=== PATIENT | female | born 1980 | race Caucasian/White ===

== ENCOUNTER 2019-08-25 10:14 | Observation (INO) | payer OTHER ==
[2019-08-25 15:24] LABS: Hematocrit 38.8 % (35-47); Hemoglobin 12.5 gm/dl (12.0-16.0); Mean Cell Volume 87.2 fl (78-100); Mean Corpuscular Hemoglobin 28.1 pg (26-32); Mean Corpuscular Hgb Concent. 32.2 g/dl (32-36); Mean Platelet Volume 11.5 fl (6-9.5); Platelet Count 246 K/mm3 (150-450); Red Blood Count 4.45 M/mm3 (4.1-5.4); Red Cell Distribution Width 13.7 % (11.5-14.0); White Blood Count 5.7 K/mm3 (4.0-10.5)
[2019-08-25 15:30] LABS: ALBUMIN 3.9 g/dL (3.5-5.0); ALKALINE PHOSPHATASE 58 U/L (38-126); ANION GAP 8.8 MEQ/L (5-15); BLOOD UREA NITROGEN 22 mg/dL (7-17); CHLORIDE 106 mmol/L (98-107); Calcium 9.2 mg/dL (8.4-10.2); Carbon Dioxide 29 mmol/L (22-30); Creatinine 1 0.73 mg/dL (0.52-1.04); Glucose 81 mg/dL (74-106); MAGNESIUM 1.8 mg/dL (1.6-2.3); Potassium 4.2 mmol/L (3.5-5.1); SGOT/AST 29 U/L (14-36); SGPT/ALT 21 U/L (0-35); SODIUM 140 mmol/L (137-145)
[2019-08-25] MEDS: Sodium Chloride 0.9% 1000 ML 1,000 ML IV SCH ×3 (15:34→22:48)
[2019-08-26] MEDS: Sodium Chloride 0.9% 1000 ML 1,000 ML IV SCH ×3 (05:20→19:38)
--- NOTE | 2019-08-26 08:30 | PCM.SSS ---
History of Present Illness - Chief Complaint Chief Complaint: severe dizziness and syncopal episodes for last 1 day History of Present Illness: is a 38 year old female.With significant past medical history of recurrent orthostatic hypotension and syncopal episode, which workup has not reveal any significant findings, but more suggestive of autonomic hypotension. She was in her usual state of health and since yesterday night she passed out couple times and now she is feeling ready weak and dizzy. She came to my office , where she was also having a near syncopal episode, so she was admitted for further evaluation and the saline infusion. - Review of Systems Constitutional: No Fever, No Chills Eyes: No Symptoms Ears, Nose, & Throat: No Symptoms Respiratory: No Cough, No Short Of Breath Cardiac: Syncope, No Chest Pain, No Edema Abdominal/Gastrointestinal: No Abdominal Pain, No Nausea, No Vomiting, No Diarrhea Genitourinary Symptoms: No Dysuria Musculoskeletal: No Back Pain, No Neck Pain Skin: No Rash Neurological: Dizziness, No Focal Weakness, No Sensory Changes Psychological: No Symptoms Endocrine: No Symptoms Hematologic/Lymphatic: No Symptoms Immunological/Allergic: No Symptoms Medications & Allergies Home Medications: Home Medication List Lisinopril/Hydrochlorothiazide [Lisinopril-Hctz 20-12.5 mg Tab] 1 tab PO DAILY 08/20/16 [History Confirmed 08/25/19] Allergies/Adverse Reactions: Allergies Allergy/AdvReac Type Severity Reaction Status Date / Time No Known Drug Allergies Allergy Verified 05/10/17 15:59 - Past Medical History Past Medical History: Yes Neurological History: Migraines ENT History: No Pertinent History Cardiac History: Hypertension Respiratory History: No Pertinent History Endocrine Medical History: No Pertinent History Musculoskelatal History: No Pertinent History GI Medical History: No Pertinent History History: No Pertinent History Pyscho-Social History: No Pertinent History Reproductive Disorders: No Pertinent History Comment: Postural Orthostatic Tachycardial Syndrome - Female History Are you now?: No (tubal) - Past Surgical History Past Surgical History: Yes Neuro Surgical History: No Pertinent History Cardiac History: No Pertinent History Respiratory Surgery: No Pertinent History GI Surgical History: Appendectomy Genitourinary Surgical Hx: No Pertinent History Musculskeletal Surgical Hx: No Pertinent History Female Surgical History: Section, Tubal Ligation Other Surgical History: spinal fusion L5-S1 - Social History Smoking Status: Never smoker Exposure to second hand smoke: No Alcohol: None Drug Use: none - Physical Exam Vital Signs: Vital Signs - 24 hr Temp Pulse Resp BP Pulse Ox 08/26/19 07:19 97.8 F 72 20 120/67 99 08/26/19 04:14 98.1 F 72 16 109/63 97 08/25/19 23:39 98.1 F 72 18 104/58 97 08/25/19 20:00 98.0 F 87 17 117/58 96 08/25/19 16:00 98.1 F 65 20 114/60 99 08/25/19 12:30 98.1 F 66 18 142/72 99 08/25/19 12:00 98.1 F 66 18 142/72 99 General Appearance: no apparent distress, alert Neurologic Exam: alert, oriented x 3, cooperative, normal mood/affect, nml cerebellar function, nml station & gait, sensation nml, No motor deficits Eye Exam: PERRL/EOMI, eyes nml inspection Ears, Nose, Throat Exam: normal ENT inspection, TMs normal, pharynx normal, moist mucous membranes Neck Exam: normal inspection, non-tender, supple, full range of motion Respiratory Exam: normal breath sounds, lungs clear, No respiratory distress Cardiovascular Exam: regular rate/rhythm, normal heart sounds, normal peripheral pulses Gastrointestinal/Abdomen Exam: soft, normal bowel sounds, No tenderness, No mass Back Exam: normal inspection, normal range of motion, No CVA tenderness, No vertebral tenderness Extremity Exam: normal inspection, normal range of motion, pelvis stable Skin Exam: normal color, warm, dry, No rash Lymphatic Exam: No adenopathy Results - Labs Lab/Micro Results: Lab Results-Last 24 Hours 08/25/19 08/25/19 Range/Units 14:45 14:45 WBC 5.7 (4.0-10.5) K/mm3 RBC 4.45 (4.1-5.4) M/mm3 Hgb 12.5 (12.0-16.0) gm/dl Hct 38.8 (35-47) % MCV 87.2 (78-100) fl MCH 28.1 (26-32) pg MCHC 32.2 (32-36) g/dl RDW 13.7 (11.5-14.0) % Plt Count 246 (150-450) K/mm3 MPV 11.5 H (6-9.5) fl Sodium 140 (137-145) mmol/L Potassium 4.2 (3.5-5.1) mmol/L Chloride 106 (98-107) mmol/L Carbon Dioxide 29 (22-30) mmol/L Anion Gap 8.8 (5-15) MEQ/L BUN 22 H (7-17) mg/dL Creatinine 0.73 (0.52-1.04) mg/dL Estimated GFR > 60.0 ML/MIN Glucose 81 (74-106) mg/dL Calcium 9.2 (8.4-10.2) mg/dL Magnesium 1.8 (1.6-2.3) mg/dL Total Bilirubin 0.50 (0.2-1.3) mg/dL AST 29 (14-36) U/L ALT 21 (0-35) U/L Alkaline Phosphatase 58 (38-126) U/L Serum Total Protein 7.0 (6.3-8.2) g/dL Albumin 3.9 (3.5-5.0) g/dL - Radiology Impressions Radiology Exams & Impressions: RAD/CHEST 2 VIEWS (PA AND LAT) Indication: Left rib pain and migraines. Comparison: February 06, 2013 PA/L chest again demonstrates normal heart, lungs, and bony thorax with a few scattered calcified granulomas. - Other Procedures and Tests Respiratory Therapy 08/26/19 08:02 EKG OM.NOW Assessment/Plan (1) Autonomic postural hypotension Current Visit: Yes Status: Acute Assessment & Plan: Chief Complaint Diagnosis Orthostatic hypotension Allergies Allergy/AdvReac Type Severity Reaction Status Date / Time No Known Drug Allergies Allergy Verified 05/10/17 15:59 Vital Signs (Last 24 hours) Temp Pulse Resp BP Pulse Ox 08/26/19 07:19 97.8 F 72 20 120/67 99 08/26/19 04:14 98.1 F 72 16 109/63 97 08/25/19 23:39 98.1 F 72 18 104/58 97 08/25/19 20:00 98.0 F 87 17 117/58 96 08/25/19 16:00 98.1 F 65 20 114/60 99 08/25/19 12:30 98.1 F 66 18 142/72 99 08/25/19 12:00 98.1 F 66 18 142/72 99 Current Medications Generic Name Dose Route Start Last Admin Trade Name Vinicioq PRN Reason Stop Dose Admin Hydrochlorothiazide 12.5 mg 08/26/19 10:00 Hydrodiuril 25 Mg PO 09/25/19 09:59 DAILY ROCÍO Sodium Chloride 1,000 mls @ 150 mls/hr 08/25/19 21:00 08/26/19 05:20 Sodium Chloride 0.9% 1000 Ml IV 09/24/19 20:59 150 mls/hr .Q6H40M ROCÍO Administration Lisinopril 20 mg 08/26/19 10:00 Zestril 20 Mg PO 09/25/19 09:59 DAILY ROCÍO Discontinued Medications Generic Name Dose Route Start Last Admin Trade Name Vinicioq PRN Reason Stop Dose Admin Sodium Chloride 1,000 mls @ 999 mls/hr 08/25/19 15:30 08/25/19 17:06 Sodium Chloride 0.9% 1000 Ml IV 08/25/19 17:30 999 mls/hr .Q1H1M ROCÍO Administration Intake & Output (Last 24 hours) 08/23/19 08/24/19 08/25/19 08/26/19 11:59 11:59 11:59 11:59 Intake Total 4145 Output Total 600 Balance 3545 Weight 113.1 kg Laboratory Results (Last 24 hours) 08/25/19 08/25/19 14:45 14:45 WBC 5.7 RBC 4.45 Hgb 12.5 Hct 38.8 MCV 87.2 MCH 28.1 MCHC 32.2 RDW 13.7 Plt Count 246 MPV 11.5 H Sodium 140 Potassium 4.2 Chloride 106 Carbon Dioxide 29 Anion Gap 8.8 BUN 22 H Creatinine 0.73 Estimated GFR > 60.0 Glucose 81 Calcium 9.2 Magnesium 1.8 Total Bilirubin 0.50 AST 29 ALT 21 Alkaline Phosphatase 58 Serum Total Protein 7.0 Albumin 3.9 Orders (Last 24 hours) Category Date Time Status Telemetry q6h Care 08/26/19 00:39 Active Regular Diet Diet 08/25/19 Lunch Active CBC Urgent Lab 08/25/19 14:45 Completed CMP Urgent Lab 08/25/19 14:45 Completed MAG [MAGNESIUM] Urgent Lab 08/25/19 14:45 Completed Hydrochlorothiazide 25 mg [hydroDIURIL 25 MG] Med 08/26/19 10:00 Active 12.5 mg PO DAILY Lisinopril 20 mg [Zestril 20 MG] Med 08/26/19 10:00 Active 20 mg PO DAILY NaCl 0.9% 1000 ml [Sodium Chloride 0.9% 1000 ML] 1,000 Med 08/25/19 21:00 Active ml IV 150 mls/hr NaCl 0.9% 1000 ml [Sodium Chloride 0.9% 1000 ML] 1,000 Med 08/25/19 15:30 Discontinued ml IV 999 mls/hr EKG OM.NOW RT 08/26/19 08:02 Active Patient Care Notes (Last 24 hours) 08/25/19 21:05 (created 08/26/19 01:09) Nursing Note by [facility] Pt c/o heavy pain in her chest, 5/10 and headache. States feels like a weight is on her chest. BP 122/70, HR 73, O2 sat 99% on RA. Episode was subsiding by the time her vitals were taken. Upon reassessment, pt states that the pain is gone. She states that this is the same feeling she always gets with these episodes. Initialized on 08/26/19 01:09 - END OF NOTE Code(s): I95.1 - ORTHOSTATIC HYPOTENSION (2) Syncope due to orthostatic hypotension Current Visit: Yes Status: Acute Code(s): I95.1 - ORTHOSTATIC HYPOTENSION Hospital Summary - Hospital Course Hospital Course: Last Vital Signs Temp 97.8 F 08/26/19 07:19 Pulse 72 08/26/19 07:19 Resp 20 08/26/19 07:19 BP 120/67 08/26/19 07:19 Pulse Ox 99 08/26/19 07:19 Allergies No Known Drug Allergies Allergy (Verified 05/10/17 15:59) Active Medications Hydrochlorothiazide (Hydrodiuril 25 Mg) 12.5 mg PO DAILY ROCÍO Stop: 09/25/19 09:59 Sodium Chloride (Sodium Chloride 0.9% 1000 Ml) 1,000 mls @ 150 mls/hr IV .Q6H40M ROCÍO Stop: 09/24/19 20:59 Last Admin: 08/26/19 05:20 Dose: 150 mls/hr Lisinopril (Zestril 20 Mg) 20 mg PO DAILY ROCOÍ Stop: 09/25/19 09:59 Intake & Output 08/25/19 08/26/19 11:59 11:59 Intake Total 4145 Output Total 600 Balance 3545 Weight 113.1 kg Orders 08/25/19 21:00 NaCl 0.9% 1000 ml [Sodium Chloride 0.9% 1000 ML] 1,000 ml IV 150 mls/hr 08/25/19 Lunch Regular Diet 08/26/19 08:02 EKG OM.NOW 08/26/19 10:00 Hydrochlorothiazide 25 mg [hydroDIURIL 25 MG] 12.5 mg PO DAILY Lisinopril 20 mg [Zestril 20 MG] 20 mg PO DAILY Lab Tests 08/25/19 08/25/19 14:45 14:45 WBC 5.7 RBC 4.45 Hgb 12.5 Hct 38.8 MCV 87.2 MCH 28.1 MCHC 32.2 RDW 13.7 Plt Count 246 MPV 11.5 H Sodium 140 Potassium 4.2 Chloride 106 Carbon Dioxide 29 Anion Gap 8.8 BUN 22 H Creatinine 0.73 Estimated GFR > 60.0 Glucose 81 Calcium 9.2 Magnesium 1.8 Total Bilirubin 0.50 AST 29 ALT 21 Alkaline Phosphatase 58 Serum Total Protein 7.0 Albumin 3.9 - Vitals & Intake/Output Vital Signs: Vital Signs Temperature 97.8 F 08/26/19 07:19 Pulse Rate 72 08/26/19 07:19 Respiratory Rate 20 08/26/19 07:19 Blood Pressure 120/67 08/26/19 07:19 O2 Sat by Pulse Oximetry 99 08/26/19 07:19 Intake & Output: Intake & Output 08/23/19 08/24/19 08/25/19 08/26/19 11:59 11:59 11:59 11:59 Intake Total 4145 Output Total 600 Balance 3545 Weight 113.1 kg - Lab Result Diagrams: 08/25/19 14:45 08/25/19 14:45 Lab Results-Last 24 Hrs: Lab Results-Last 24 Hours 08/25/19 08/25/19 Range/Units 14:45 14:45 WBC 5.7 (4.0-10.5) K/mm3 RBC 4.45 (4.1-5.4) M/mm3 Hgb 12.5 (12.0-16.0) gm/dl Hct 38.8 (35-47) % MCV 87.2 (78-100) fl MCH 28.1 (26-32) pg MCHC 32.2 (32-36) g/dl RDW 13.7 (11.5-14.0) % Plt Count 246 (150-450) K/mm3 MPV 11.5 H (6-9.5) fl Sodium 140 (137-145) mmol/L Potassium 4.2 (3.5-5.1) mmol/L Chloride 106 (98-107) mmol/L Carbon Dioxide 29 (22-30) mmol/L Anion Gap 8.8 (5-15) MEQ/L BUN 22 H (7-17) mg/dL Creatinine 0.73 (0.52-1.04) mg/dL Estimated GFR > 60.0 ML/MIN Glucose 81 (74-106) mg/dL Calcium 9.2 (8.4-10.2) mg/dL Magnesium 1.8 (1.6-2.3) mg/dL Total Bilirubin 0.50 (0.2-1.3) mg/dL AST 29 (14-36) U/L ALT 21 (0-35) U/L Alkaline Phosphatase 58 (38-126) U/L Serum Total Protein 7.0 (6.3-8.2) g/dL Albumin 3.9 (3.5-5.0) g/dL - Procedures and Test Procedures and Tests throughout Hospitalization: Therapy Orders & Screens 08/26/19 08:02 EKG OM.NOW Comment: Diagnosis: Orthostatic hypotension - Discharge Discharge Date: 08/26/19 Disposition: Home, Self-Care Condition: Stable Prescriptions: Continue Lisinopril/Hydrochlorothiazide [Lisinopril-Hctz 20-12.5 mg Tab] 1 tab PO DAILY Follow up with: MEAGAN SÁNCHEZ MD [Primary Care Provider] - 09/04/19 2:00 pm (at [place]) Forms: Work/School Release Form
[2019-08-26] MEDS ORDERED: NON-FORMULARY ITEM (Lisinopril/Hydrochlorothiazide [Lisinopril-Hctz 20-12.5 Mg Tab] 1 TAB) PO SCH (10:00)
[2019-08-26] MEDS ORDERED: Zofran 4 MG/2 ML VIAL IV PRN (10:14)
[2019-08-26] MEDS ORDERED: Sodium Chloride 0.9% 1000 ML 1,000 ML IV STA (10:15)
[2019-08-26] MEDS ORDERED: Phenergan 25 MG INJ IV PRN (11:50)
[2019-08-26] MEDS: Zestril 20 MG PO SCH (11:53)
[2019-08-26] MEDS: hydroDIURIL 25 MG PO SCH (11:53)
[2019-08-26 13:02] LABS: ALBUMIN 3.3 g/dL (3.5-5.0); ALKALINE PHOSPHATASE 53 U/L (38-126); BLOOD UREA NITROGEN 13 mg/dL (7-17); CHLORIDE 111 mmol/L (98-107); Carbon Dioxide 26 mmol/L (22-30); Creatinine 1 0.64 mg/dL (0.52-1.04); Glucose 78 mg/dL (74-106); Potassium 3.9 mmol/L (3.5-5.1); SGOT/AST 20 U/L (14-36); SGPT/ALT 16 U/L (0-35); SODIUM 141 mmol/L (137-145); Total Protein 6.1 g/dL (6.3-8.2)
[2019-08-26 13:07] LABS: AMYLASE 40 U/L (30-110); LIPASE 107 U/L (23-300)
[2019-08-26] MEDS ORDERED: NORCO 5/325 MG PO PRN (13:13)
[2019-08-26] MEDS ORDERED: Ativan 2 MG/1 ML VIAL IV ONE (18:11)
--- NOTE | 2019-08-26 19:44 | XRAY ---
Indication: Dizziness and nausea. Multiple contiguous axial images obtained through the head without contrast. Comparison: None Normal appearing brain parenchyma, ventricles, and bony calvarium. Visualized paranasal sinuses and mastoid air cells are clear. Impression: Normal CT head without contrast exam. Comment: Preliminary interpretation was made by [facility]. No discrepancy. CTDI 61.96
[2019-08-27] MEDS: Sodium Chloride 0.9% 1000 ML 1,000 ML IV SCH (01:47)
--- NOTE | 2019-08-27 07:59 | PCM.NOTE ---
Date and Time: 08/27/19 0759 Subjective Assessment: still some episodes of lightheadedness - Review of Systems Constitutional: No Fever, No Chills Eyes: No Symptoms Ears, Nose, & Throat: No Symptoms Respiratory: No Cough, No Short Of Breath Cardiac: No Chest Pain, No Edema, No Syncope Abdominal/Gastrointestinal: No Abdominal Pain, No Nausea, No Vomiting, No Diarrhea Genitourinary Symptoms: No Dysuria Musculoskeletal: No Back Pain, No Neck Pain Skin: No Rash Neurological: No Dizziness, No Focal Weakness, No Sensory Changes Psychological: No Symptoms Endocrine: No Symptoms Hematologic/Lymphatic: No Symptoms Immunological/Allergic: No Symptoms Objective Exam General Appearance: no apparent distress, alert Neurologic Exam: alert, oriented x 3, cooperative, normal mood/affect, nml cerebellar function, sensation nml, No motor deficits Skin Exam: normal color, warm, dry Eye Exam: PERRL, EOMI, eyes nml inspection Ears, Nose, Throat Exam: normal ENT inspection, pharynx normal, moist mucous membranes Neck Exam: normal inspection, non-tender, supple, full range of motion Respiratory Exam: normal breath sounds, lungs clear, No respiratory distress Cardiovascular Exam: regular rate/rhythm, normal heart sounds Gastrointestinal/Abdomen Exam: soft, No tenderness, No mass Extremity Exam: normal inspection, normal range of motion Back Exam: normal inspection, normal range of motion, No CVA tenderness, No vertebral tenderness Pelvic Exam: deferred Rectal Exam: deferred OBJECTIVE DATA Vital Signs: Vital Signs - 24 hr Temp Pulse Resp BP Pulse Ox 08/27/19 07:03 98.0 F 74 17 128/72 99 08/27/19 04:00 18 08/27/19 03:55 97.8 F 73 18 129/80 99 08/27/19 00:00 16 08/26/19 23:26 97.9 F 83 16 101/52 99 08/26/19 20:00 16 08/26/19 19:58 98.1 F 89 16 103/58 98 08/26/19 16:03 97.8 F 60 20 133/79 99 08/26/19 12:26 66 20 139/65 99 Pain Assessment - Last Documented Pain Intensity 0 Pain Scale Used 0-10 Pain Scale Intake and Output: Intake & Output 11/07/19 11/08/19 11/09/19 11/10/19 11:59 11:59 11:59 11:59 Intake Total 4507 5433 Output Total 600 1500 Balance 3906 3944 Weight 113.1 kg Lab Results: Lab Results-Last 24 Hours 08/26/19 08/26/19 Range/Units 12:49 12:49 Sodium 141 (137-145) mmol/L Potassium 3.9 (3.5-5.1) mmol/L Chloride 111 H (98-107) mmol/L Carbon Dioxide 26 (22-30) mmol/L Anion Gap 7.0 (5-15) MEQ/L BUN 13 (7-17) mg/dL Creatinine 0.64 (0.52-1.04) mg/dL Estimated GFR > 60.0 ML/MIN Glucose 78 (74-106) mg/dL Calcium 8.0 L (8.4-10.2) mg/dL Total Bilirubin 0.40 (0.2-1.3) mg/dL AST 20 (14-36) U/L ALT 16 (0-35) U/L Alkaline Phosphatase 53 (38-126) U/L Serum Total Protein 6.1 L (6.3-8.2) g/dL Albumin 3.3 L (3.5-5.0) g/dL Amylase 40 (30-110) U/L Lipase 107 (23-300) U/L Radiology Exams: Radiology Procedures Category Date Time Status HEAD WITHOUT CONTRAST [CT] Urgent Exams 08/26/19 11:49 Completed Assessment/Plan (1) Autonomic postural hypotension Current Visit: Yes Status: Acute Code(s): I95.1 - ORTHOSTATIC HYPOTENSION (2) Syncope due to orthostatic hypotension Current Visit: Yes Status: Acute Code(s): I95.1 - ORTHOSTATIC HYPOTENSION
[2019-08-27] MEDS: ANTIVERT 25 MG PO SCH ×3 (08:43→14:33)
[2019-08-27] MEDS: Zestril 20 MG PO SCH (10:19)
[2019-08-27] MEDS: hydroDIURIL 25 MG PO SCH (10:19)
[2019-08-27 16:34] VITALS: BP 131/66; PULSE 66; O2SAT 100
== END 2019-08-27 16:58 | disposition home or self-care (01) ==
LOC: MED SURG 10:34
PROVIDERS: ADMIT General Practice; ATTEND General Practice
DX: I95.1 Orthostatic hypotension (principal); R42 Dizziness and giddiness; I10 Essential (primary) hypertension
CPT/HCPCS: 36415; 70450; 80053; 82150; 83690; 83735; 85027; 93005; 93268; G0378; J2060; J2405; J2550; A9270-GY

== ENCOUNTER 2020-08-01 11:18 | Observation (INO) | payer OTHER ==
[2020-08-01] MEDS: Sodium Chloride 0.9% 1000 ML 1,000 ML IV SCH ×3 (13:12→16:03)
--- NOTE | 2020-08-01 13:26 | XRAY ---
Indication: Cough and congestion one month. Comparison: August 20, 2016. PA/lateral chest again demonstrates normal heart, lungs, and bony thorax with a few incidental calcified granulomas.
[2020-08-01 13:40] LABS: Appearance SLIGHTLY CLOUDY (CLEAR); Bilirubin NEGATIVE (NEGATIVE); Blood NEGATIVE Ery/ul (0-5); Epithelial Cells RARE /HPF (FEW); Glucose NEGATIVE (NEGATIVE); Ketones NEGATIVE (NEGATIVE); Leukocyte Esterase NEGATIVE (NEGATIVE); Mucus SLIGHT /HPF (NEGATIVE); Nitrite NEGATIVE (NEGATIVE); Protein,Urine Dip NEGATIVE (Negative); Specific Gravity 1.026 (1.005-1.025); Urobilinogen NEGATIVE mg/dL (0-1)
[2020-08-01 13:40] LABS: Hematocrit 41.4 % (35-47); Hemoglobin 13.2 gm/dl (12.0-16.0); Mean Cell Volume 88.5 fl (78-100); Mean Corpuscular Hemoglobin 28.2 pg (26-32); Mean Corpuscular Hgb Concent. 31.9 g/dl (32-36); Mean Platelet Volume 11.2 fl (7.5-11.0); Platelet Count 259 K/mm3 (150-450); Red Blood Count 4.68 M/mm3 (4.1-5.4); White Blood Count 5.2 K/mm3 (4.0-10.5)
[2020-08-01 13:51] LABS: ALBUMIN 4.3 g/dL (3.5-5.0); ALKALINE PHOSPHATASE 74 U/L (38-126); ANION GAP 7.8 MEQ/L (5-15); BLOOD UREA NITROGEN 23 mg/dL (7-17); CHLORIDE 110 mmol/L (98-107); Calcium 9.3 mg/dL (8.4-10.2); Carbon Dioxide 24 mmol/L (22-30); Creatinine 1 1.01 mg/dL (0.52-1.04); EST GLOMERULAR FILTRATION RATE > 60.0 ML/MIN; Glucose 87 mg/dL (74-106); Potassium 3.9 mmol/L (3.5-5.1); SGOT/AST 22 U/L (14-36); SGPT/ALT 16 U/L (0-35); SODIUM 138 mmol/L (137-145); Total Protein 7.2 g/dL (6.3-8.2)
[2020-08-01] MEDS ORDERED: MEDICATION INTERVENTION MC SCH (14:15)
[2020-08-01] MEDS ORDERED: NON-FORMULARY ITEM (Pyridostigmine Bromide [Mestinon] 60 MG) PO SCH (15:00)
--- NOTE | 2020-08-01 16:02 | PCM.HP.ADD ---
Addendum to History & Physical - History & Physical Addendum Addendum to History & Physical: This certifies that the History & Physical in the electronic chart reflects the current health status of the patient. If there are changes in the H&P these changes/exceptions are listed as follows.
[2020-08-01] MEDS: MOTRIN 400 MG PO PRN (16:03)
[2020-08-01 17:36] LABS: MAGNESIUM 2.1 mg/dL (1.6-2.3); PHOSPHOROUS 3.3 mg/dL (2.5-4.5)
[2020-08-01] MEDS: PROAMATINE 5 MG PO SCH ×2 (18:38→23:00)
[2020-08-01] MEDS: TOPIRAMATE PO SCH (20:51)
[2020-08-01] MEDS: Toprol Xl 50 MG PO SCH (20:52)
[2020-08-02] MEDS: Sodium Chloride 0.9% 1000 ML 1,000 ML IV SCH ×2 (01:57→11:54)
[2020-08-02] MEDS: TOPIRAMATE PO SCH ×2 (09:29→21:41)
[2020-08-02] MEDS: PROAMATINE 5 MG PO SCH ×3 (09:29→21:42)
[2020-08-02] MEDS: MOTRIN 400 MG PO PRN (09:34)
[2020-08-02] MEDS ORDERED: Ativan 2 MG/1 ML VIAL IV ONE (10:56)
[2020-08-02 11:21] LABS: ALBUMIN 3.7 g/dL (3.5-5.0); ALKALINE PHOSPHATASE 63 U/L (38-126); ANION GAP 5.7 MEQ/L (5-15); BLOOD UREA NITROGEN 15 mg/dL (7-17); CHLORIDE 114 mmol/L (98-107); Calcium 8.5 mg/dL (8.4-10.2); Carbon Dioxide 20 mmol/L (22-30); Creatinine 1 0.79 mg/dL (0.52-1.04); EST GLOMERULAR FILTRATION RATE > 60.0 ML/MIN; Glucose 94 mg/dL (74-106); MAGNESIUM 2.1 mg/dL (1.6-2.3); Potassium 3.9 mmol/L (3.5-5.1); SGOT/AST 18 U/L (14-36); SGPT/ALT 13 U/L (0-35); SODIUM 136 mmol/L (137-145); Total Protein 6.2 g/dL (6.3-8.2)
[2020-08-02 12:16] LABS: A-aADO2 -45; ABG HEMOGLOBIN 12.7; ABG SITE RIGHT RADIAL; ALLEN TEST OK? YES; ARTERIAL BLD GAS O2 SATURATION 99.7 % (95-100); ARTERIAL BLOOD GAS BASE EXCESS -2.1 (-2.0-2.0); ARTERIAL BLOOD GAS FIO2 21 %; ARTERIAL BLOOD GAS PCO2 31 mmHg (35-45); ARTERIAL BLOOD GAS PO2 156 mmHg (75-100); ARTERIAL BLOOD GAS pH 7.44 (7.35-7.45); CARBOXYHEMOGLOBIN 2.6 % THgb (0.0-6.9); HCO3- 21.1 (22-28); HGB O2 SAT 96.2 g/dF (94-100); Methhemoglobin 0.9 % (1.4-1.5); paO2 pAO1 1.41
[2020-08-02] MEDS ORDERED: Ativan 2 MG/1 ML VIAL IV PRN (12:42)
[2020-08-02] MEDS: Toprol Xl 50 MG PO SCH (21:41)
[2020-08-03] MEDS: Sodium Chloride 0.9% 1000 ML 1,000 ML IV SCH ×2 (00:24→09:25)
[2020-08-03] MEDS: TOPIRAMATE PO SCH (09:25)
[2020-08-03] MEDS: PROAMATINE 5 MG PO SCH (09:26)
[2020-08-03 11:29] VITALS: BP 138/77; PULSE 57; O2SAT 99
--- NOTE | 2020-08-03 12:08 | PCM.DS ---
Discharge Summary Date of Admission: 08/01/20 11:56 Admitting Physician: MEAGAN SÁNCHEZ Primary Care Provider: MEAGAN SÁNCHEZ Allergies Allergies No Known Drug Allergies Allergy (Verified 04/15/20 16:23) Hospital Summary - Hospital Course Hospital Course: Pt is a 39 yo female pt of Dr. Sánchez who was directly admitted by him through the office for IV fluids; pt suffers from POTS (postural orthostatic tachycardia syndrome). Was also started on po midodrine 5mg TID here. She had some nausea this morning but no vomiting. Was tachypneic yesterday and had ABG which was non acute. She is not feeling great this morning but agrees with going home. Her labs have been nonacute. Continue midodrine. She will f/u with Dr. Sánchez in office within 1 week. - Vitals & Intake/Output Vital Signs: Vital Signs Temperature 98.3 F 08/03/20 11:28 Pulse Rate 57 L 08/03/20 11:28 Respiratory Rate 18 08/03/20 11:28 Blood Pressure 138/77 08/03/20 11:28 O2 Sat by Pulse Oximetry 99 08/03/20 11:28 Intake & Output: Intake & Output 08/01/20 08/02/20 08/03/20 08/04/20 11:59 11:59 11:59 11:59 Intake Total 4100 3690 Output Total 1820 2300 Balance 2280 1390 Weight 111 kg - Lab Result Diagrams: 08/01/20 13:39 08/02/20 11:06 Lab Results-Last 24 Hrs: Lab Results-Last 24 Hours 08/02/20 08/03/20 Range/Units 11:00 08:00 Puncture Site RIGHT RADIAL pCO2 31 L (35-45) mmHg pO2 156 H* (75-100) mmHg Base Excess -2.1 L (-2.0-2.0) O2 Saturation 96.2 (94-100) g/dF ABG pH 7.44 (7.35-7.45) ABG HCO3 21.1 L (22-28) ABG O2 Sat (Measured) 99.7 (95-100) % Alexei Test YES A-a Gradient -45 a/A Ratio 1.41 Hemoglobin 12.7 Carboxyhemoglobin 2.6 (0.0-6.9) % THgb Methemoglobin 0.9 L (1.4-1.5) % Potassium 4.0 (3.5-5.1) Temperature 37.0 C POC O2 Flow Rate 21 % POC Glucometer 71 L (74 to 106) mg/dL - Radiology Exams Ordered Rad Exams-Entire Visit: Radiology Procedures Category Date Time Status CHEST 2 VIEWS (PA AND LAT) Routine Exams 08/01/20 13:19 Completed - Procedures and Test Procedures and Tests throughout Hospitalization: Therapy Orders & Screens 08/02/20 12:45 EEG 41-60 Minutes (Normal) ONCE Comment: Reason For Exam: seizure-like activity; dizziness Diagnosis: dizziness Discharge Exam General Appearance: no apparent distress, alert Neurologic Exam: oriented x 3, cooperative Eye Exam: eyes nml inspection Ears, Nose, Throat Exam: moist mucous membranes Neck Exam: normal inspection Respiratory Exam: normal breath sounds, lungs clear, No crackles/rales, No rhonchi, No wheezing Cardiovascular Exam: regular rate/rhythm, normal heart sounds, No murmur Gastrointestinal/Abdomen Exam: soft, No normal bowel sounds (decreased but pr esent), No tenderness, No distention, No mass, No guarding, No rebound Back Exam: normal inspection, No rash Extremity Exam: normal inspection, No swelling, No tenderness Skin Exam: normal color, warm, dry, No rash Final Diagnosis/Problem List - Final Discharge Diagnosis/Problem (1) Autonomic postural hypotension Current Visit: No Status: Acute Assessment & Plan: Received IV fluids, states she never feels that great it just depends on her position. Labs non acute. Will send pt home and she is to f/u with Dr. Sánchez. Should return to ER for any worrisome change in sx including but not limited to SOB, fever, or syncope. Code(s): I95.1 - ORTHOSTATIC HYPOTENSION - Discharge Disposition: Home, Self-Care Condition: Stable Prescriptions: New Midodrine HCl 5 mg [Proamatine 5 mg] 5 mg PO TID #21 tablet Ondansetron ODT 4 MG [Zofran Odt 4 mg] 4 mg PO Q6H PRN PRN #30 tab.rapdis PRN Reason: Nausea Continue Metoprolol Succinate 50 mg [Toprol Xl 50 MG] 50 mg PO HS Topiramate [Topamax] 100 mg PO BID Pyridostigmine [place] [Mestinon] 60 mg PO TID Instructions: Orthostatic Hypotension (DC), Dizziness, Nonvertigo, (DC), Tachycardia (DC) Follow up with: MEAGAN SÁNCHEZ MD [Primary Care Provider] - Call for Appointment
== END 2020-08-03 12:40 | disposition home or self-care (01) ==
LOC: MED SURG 11:56
PROVIDERS: ADMIT General Practice; ATTEND General Practice
DX: I95.1 Orthostatic hypotension (principal); I49.8 Other specified cardiac arrhythmias; G90.9 Disorder of the autonomic nervous system, unspecified; Z79.899 Other long term (current) drug therapy
CPT/HCPCS: 36415; 36600; 71046; 80053; 81001; 82375; 82803; 82962; 83735; 84100; 85027; 95812; G0378; J2060; A9270-GY